=== PATIENT | female | born 1985 ===

== ENCOUNTER 2022-09-08 09:08 | Outpatient (CLI) | payer MEDICAID ==
[2022-09-08 12:11] LABS: BASOPHILS % (AUTO) 0.7 %; EOSINOPHILS # (AUTO) 0.2 10^3/uL (0.0-0.7); EOSINOPHILS % (AUTO) 3.3 %; HCT - HEMATOCRIT 39.3 % (37.0-47.0); HGB - HEMOGLOBIN 12.6 g/dL (12.0-16.0); LYMPHOCYTES # (AUTO) 1.7 10^3/uL (1.5-3.5); LYMPHOCYTES % (AUTO) 28.2 %; MEAN CORPUSCULAR HEMOGLOBIN 29.8 pg (27.0-31.0); MEAN CORPUSCULAR HGB CONC 32.1 g/dL (32.0-36.0); MEAN CORPUSCULAR VOLUME 92.9 fL (81.0-99.0); MEAN PLATELET VOLUME 10.4 fL (7.9-10.8); MONOCYTES # (AUTO) 0.3 10^3/uL (0.0-1.0); MONOCYTES % (AUTO) 5.3 %; NEUTROPHILS # (AUTO) 3.7 10^3/uL (1.5-6.6); NEUTROPHILS % (AUTO) 62.3 %; PLT - PLATELET COUNT 215 10^3/uL (130-450); RED BLOOD COUNT 4.23 10^6/uL (4.20-5.40); RED CELL DISTRIBUTION WIDTH 13.2 % (12.0-15.0)
[2022-09-08 12:28] LABS: ALBUMIN 4.5 g/dL (3.2-5.5); ALBUMIN/GLOBULIN RATIO 1.4 (1.0-2.2); ALKALINE PHOSPHATASE 36 IU/L (42-121); ALT ALANINE AMINOTRANSFERASE 17 IU/L (10-60); AST ASPARTATE AMINOTRANSFERASE 18 IU/L (10-42); BILIRUBIN,TOTAL 0.6 mg/dL (0.2-1.0); BUN - BLOOD UREA NITROGEN 17 mg/dL (6-20); CALCIUM 8.9 mg/dL (8.5-10.3); CARBON DIOXIDE - CO2 26 mmol/L (21-32); CHLORIDE 108 mmol/L (101-111); CHOL/HDL RATIO 2.6 (<4.4); CHOLESTEROL 177 mg/dL; CREATININE 0.7 mg/dL (0.4-1.0); GFR - MDRD 94 (>89); GLUCOSE 101 mg/dL (70-100); HDL CHOLESTEROL 67 mg/dL; LDL CHOLESTEROL,CALCULATED 101 mg/dL; LDL/HDL RATIO 1.5 (<4.4); POTASSIUM 4.1 mmol/L (3.5-5.0); SODIUM 139 mmol/L (135-145); TOTAL PROTEIN 7.7 g/dL (6.7-8.2); TRIGLYCERIDES 46 mg/dL; URIC ACID 4.4 mg/dL (2.6-7.2); VLDL CHOLESTEROL 9 mg/dL
[2022-09-08 12:29] LABS: CRP - C-REACTIVE PROTEIN < 1.0 mg/dL (0-1.0)
[2022-09-08 12:34] LABS: THYROID STIMULATING HORMONE 1.31 uIU/mL (0.34-5.60)
[2022-09-08 12:39] LABS: ESTIMATED AVERAGE GLUCOSE 97 mg/dL (70-100)
[2022-09-09 18:07] LABS: ANTI-DNA (DS) AB QN 1 IU/mL (0-9)
[2022-09-09 22:07] LABS: CYCLIC CITRULLINATED PEP IGG/A 3 units (0-19)
[2022-09-10 18:07] LABS: ANTINUCLEAR ANTIBODIES IFA Negative (.)
== END 2022-09-08 09:09 | disposition home or self-care (01) ==
LOC: LAB.N 09:08
PROVIDERS: ATTEND Nurse Practitioner
DX: R53.83 Other fatigue (principal); Z13.220 Encounter for screening for lipoid disorders; R63.2 Polyphagia; R63.5 Abnormal weight gain; M19.049 Primary osteoarthritis, unspecified hand
CPT/HCPCS: 36415; 80053; 80061; 83036; 83721; 84443; 84550; 85025; 85651; 86038; 86140; 86200; 86225

== ENCOUNTER 2022-09-11 10:51 | Outpatient (CLI) | payer MEDICAID | END 2022-09-11 10:52 | disposition home or self-care (01) | LOC: MAC.MOP 10:51 | PROVIDERS: ATTEND Nurse Practitioner | DX: R00.2 Palpitations (principal); R00.1 Bradycardia, unspecified | CPT/HCPCS: 93246 ==

== ENCOUNTER 2022-10-06 10:30 | Outpatient (CLI) | payer MEDICAID | END 2022-10-06 10:31 | disposition home or self-care (01) | LOC: MAC.INF 10:30 | PROVIDERS: ATTEND Nurse Practitioner | DX: I47.1 Supraventricular tachycardia (principal); R94.31 Abnormal electrocardiogram [ECG] [EKG]; I49.1 Atrial premature depolarization | CPT/HCPCS: 93248 ==

== ENCOUNTER 2023-01-01 08:19 | Outpatient (CLI) | payer MEDICAID ==
--- NOTE | 2023-01-04 13:44 | CT Report ---
PROCEDURE: SINUS SCREENING WO INDICATIONS: ANOSMIA, CHRONIC PANSINUSITIS, NASAL POLYPOSIS TECHNIQUE: Noncontrast 3.0 mm axial images acquired from the frontal sinuses to the mid-sella, with coronal and sagittal reformats. For radiation dose reduction, the following was used: automated exposure control , adjustment of mA and/or kV according to patient size. COMPARISON: None. FINDINGS: Image quality: Excellent. Maxillary Sinuses: Moderate to prominent mucosal thickening can be seen within the maxillary sinuses. Portions of the medial cortez of the maxillary sinuses are demineralized. A portion of the medial wal l of the right maxillary sinus has been removed. Ethmoid Air Cells: There is near complete opacification of the ethmoid air cells, left worse than ri ght. There is demineralization of the bony septations of the ethmoid air cells. Sphenoid Sinuses: No bony remodeling or destruction. There is mild to moderate right-sided and mild left-sided mucosal thickening. Frontal Sinuses: There is at least moderate left-sided and moderate right-sided mucosal thickening i s seen. No definite bony changes are seen. The frontal sinuses are relatively poorly developed. Ostiomeatal Complexes: Apparent prior right antrectomy. The left ostiomeatal complex is highly demin eralized and is highly constitutionally narrowed and is further inferiorly completely occluded by sof t tissue thickening. Miscellaneous: Visualized intra-orbital contents are normal. No alejandra bullosa. There is mild rig htward nasal septal deviation. Abnormal soft tissue can be seen involving the superior aspects of the nasal cavities. IMPRESSION: Significant multifocal paranasal sinus disease can be seen. Apparent prior right antrectomy. Please relate with known patient history. The left ostiomeatal complex is highly constitutionally narrowed and is further healing completely oc cluded by soft tissue thickening. Areas of bony demineralization are seen, which are consistent with chronic sinusitis. Abnormal soft tissue can be seen within the superior nasal cavity, which is attributed to polyp disea se. Reviewed by: Skinny Manning MD on 01/04/2023 12:42 PM AKTASHA Approved by: Skinny Manning MD on 01/04/2023 12:42 PM AKDT Station ID: [id number]
== END 2023-01-01 08:20 | disposition home or self-care (01) ==
LOC: DI 08:19
PROVIDERS: ATTEND Otolaryngology
DX: R43.0 Anosmia (principal); J32.4 Chronic pansinusitis; J33.9 Nasal polyp, unspecified